=== PATIENT | male | born 1965 | race Two or more races ===

== ENCOUNTER 2024-11-10 06:45 | Day surgery (SDC) | payer BC, SELFPAY ==
[2024-11-10] VITALS (10 sets, daily range): BP systolic 117–154; BP diastolic 69–92; PULSE 50–65; RESP 14–19; TEMP 36.1–36.8; O2SAT 96–100; BMI 27.8
[2024-11-10] MEDS: SODIUM CHLORIDE 0.9% 500 ML 500 ML 20 ML IV (07:32)
[2024-11-10] MEDS: DiphenhydrAMINE INJ 50 MG/ML VIAL 25 MG IV (07:39)
[2024-11-10] MEDS: MIDAZOLAM INJ 1 MG/ML VIAL 2 ML (ASD USE ONLY) 2 MG IV (07:43)
[2024-11-10] MEDS: fentaNYL CIT INJ 50 mCg/ML AMP 2ML (ASD USE ONLY) IV (07:45)
== END 2024-11-10 08:46 | disposition home or self-care (01) ==
LOC: SASD 11:06
PROVIDERS: PCP Internal Medicine; Referring Provider Surgery; Visit Provider Surgery
PROC: 0DBE8ZX Excision of Large Intestine, Via Natural or Artificial Opening Endoscopic, Diagnostic (ICD-10-PCS; CPT 45380; principal; 2024-11-10 07:30)
DX: Z12.11 Encounter for screening for malignant neoplasm of colon (principal); Z86.0100 Personal history of colon polyps, unspecified; D12.5 Benign neoplasm of sigmoid colon; K64.1 Second degree hemorrhoids; K57.30 Diverticulosis of large intestine without perforation or abscess without bleeding
CPT/HCPCS: 45380; A4649; J1200; J2250; J3010; J7040

== ENCOUNTER → 2025-05-25 | Outpatient (BNVA) | payer BC, SELFPAY | END | disposition home or self-care (01) | PROVIDERS: PCP Internal Medicine Gastroenterology; Referring Provider Internal Medicine Gastroenterology; Visit Provider Urology | DX: N40.1 Benign prostatic hyperplasia with lower urinary tract symptoms (principal); N13.8 Other obstructive and reflux uropathy; E66.9 Obesity, unspecified; Z68.29 Body mass index [BMI] 29.0-29.9, adult; F17.210 Nicotine dependence, cigarettes, uncomplicated; Z71.6 Tobacco abuse counseling | CPT/HCPCS: 81003; 99212; G0463 ==